=== PATIENT | female | born 1990 | race Caucasian/White ===

== ENCOUNTER 2023-06-27 01:32 | Day surgery (SDC) | payer BC, SELFPAY ==
[2023-06-20 14:40] VITALS: BMI 20.5
--- NOTE | 2023-06-20 15:00 | PC.NURSE ---
Report to the Outpatient Waiting Room, entrance under the green pavilion located off [facility], at 0800 on 06/27/23. Planned Procedure Time: 1000. Time changes happen often and if your time is changed the preop area will call you the afternoon before. - You and your visitor will be asked to self-screen and do not enter if you have any COVID symptoms. - A mask is optional within the hospital at this time. Patients may have clear liquids (water, carbonated beverages, clear teas, apple juice) until 3 hours prior to surgery with a maximum of 20 ounces. - No food from midnight until time of surgery Take the following medications with a SIP of water the morning of surgery: _n/a DO NOT STOP ANY OF YOUR OTHER PRESCRIPTION MEDICATIONS PRIOR TO SURGERY ?EXCEPT THE FOLLOWING Medications to discontinue per physician-all vitamins/supplements Date to take last dose-3 days prior Please no make-up, nail luxembourgish, hairspray, perfume, deodorant, or body powder the day of surgery. No jewelry (including any body piercings) or valuables the day of surgery, leave them at home. Please take a shower or bath the night before, or the morning of, surgery with an antibacterial soap. Wear comfortable, loose fitting clothing. - Jewelry must be removed prior to entering the operating room. Rings and piercings that are not removed may be cut off. - The hospital will not accept responsibility for valuables. - Please leave all valuables, including medications, at home the day of surgery. If you are going home after surgery, a licensed truss driver helper must drive you home. - NO public transportation without another adult if you receive anesthesia. - We recommend that an adult stay with you for 24 hours following discharge. - We also recommend that you do not drive, make important decision, drink alcoholic beverages, or take any drugs that were not prescribed by your health care provider for at least 24 hours after your discharge time. For Pediatric surgeries, we recommend two adults accompany the child home. Follow any additional instructions given to you from your surgeon. If you or anyone in your household have experienced Covid symptoms in the past week, please notify your surgeon or the nurse liaison at the phone number below for possible testing. Telephone instructions given to patient and asked if any additional questions and then verbalized understanding. Patient advised to call surgeon office or pre surgery nurse liaison [phone] if any additional questions.
[2023-06-27] VITALS (10 sets, daily range): BP systolic 92–127; BP diastolic 61–78; PULSE 54–77; RESP 14–16; TEMP 36.6; O2SAT 92–98
--- NOTE | 2023-06-27 07:15 | WPDHPUPDATE1 ---
History and Physical Update Update Date/Time: 06/27/23 07:15 A: Menometrorrhagia P: 1. Hysteroscopy with uterine curettings 2. Endometrial ablation History and Physical has been reviewed, including an updated exam of the patient. There are NO changes in the patient's condition. Risks, benefits, and alternatives have been discussed and questions answered. Patient agrees to proceed with procedure.
[2023-06-27 08:50] LABS: Hemoglobin 12.5 g/dL (12.0-15.0); Mean Corpuscular HGB Conc 32.9 g/dl (32-36); Mean Corpuscular Hemoglobin 27.2 pg (26-34); Mean Corpuscular Volume 82.6 fl (80-100); Mean Platelet Volume 9.1 fl (7.4-10.4); Platelet Count Result 299 k/mm3 (150-375); Red Cell Distribution Width 13.3 % (11.5-14.5); White Blood Count 4.8 K/mm3 (4.5-10.0)
[2023-06-27] MEDS: LACTATED RINGERS 1,000 ML 30 ML IV CONT ×2 (09:00→10:43)
[2023-06-27] MEDS: ACETAMINOPHEN 500 MG TABLET 1000 MG PO (09:00)
[2023-06-27] MEDS: SCOPOLAMINE 1.5 MG PATCH TRANSDERM (09:23)
[2023-06-27] MEDS: ceFAZolin 2 GM/D5W 50 ML 2 GM/50 ML BAG IVPB (09:29)
--- NOTE | 2023-06-27 09:51 | W.PM.PROC2 ---
Procedure Note - Detailed Date of Procedure 06/27/23 Pre-op Diagnosis abnormal uterine bleeding Post-op Diagnosis Same Procedure Performed 1. Hysteroscopy with uterine curettings 2. Endometrial ablation Surgeon Esdras Duque MD Anesthesia MAC Findings Slightly thickened endometrial cavity Description of Procedure Patient prepped and draped usual manner for this procedure. Cervix dilated to allow the hysteroscope placed, which revealed thickened tissue. Curettings were obtained and Dana instrument was placed. Cavity assessment was performed and instrument was activated. At the end of the procedure destruction was noted throughout with no abnormality to the integrity of the cavity. Patient was sent to recovery room in stable condition. Estimated Blood Loss 10 Drains No Packing No Pathology Yes Complications No immediate complications Condition Stable Disposition PACU [facility] Billing Surgery - Charge Forward: Surgery Billing
[2023-06-27] MEDS: fentaNYL CITRATE INJ (*CRX) 100 MCG/2 ML VIAL 25 MCG IV PUSH ×5 (10:15→10:38)
[2023-06-27] MEDS: KETOROLAC 30 MG/ML VIAL (*BKC) IV PUSH (10:33)
[2023-06-27] MEDS: ONDANSETRON INJ 4 MG/2 ML VIAL IV PUSH (10:43)
[2023-06-27] MEDS: diphenhydrAMINE HCl INJ 50 MG/ML VIAL 25 MG IV PUSH (10:59)
[2023-06-27] MEDS: oxyCODONE HCL (*CRX) 5 MG TAB IR PO (11:33)
[2023-06-27] MEDS: HALOPERIDOL LACTATE 5 MG/ML VIAL 2 MG IV PUSH (12:36)
== END 2023-06-27 13:42 | disposition home or self-care (01) ==
PROVIDERS: PCP Family Medicine; Visit Provider Obstetrics & Gynecology
PROC: 0U5B8ZZ Destruction of Endometrium, Via Natural or Artificial Opening Endoscopic (ICD-10-PCS; CPT 58563; principal; 2023-06-27 10:00)
DX: N93.9 Abnormal uterine and vaginal bleeding, unspecified (principal); Z87.891 Personal history of nicotine dependence
CPT/HCPCS: 58563; 36415; 85027; 88305; A9270; J0690; J1200; J1630; J1885; J2250; J2405; J2704; J3010; J7120

== ENCOUNTER 2023-10-03 12:08 | Emergency (ER) | payer SELFPAY | END 2023-10-03 12:49 | disposition left against medical advice (07) | PROVIDERS: PCP Family Medicine | DX: Z53.21 Procedure and treatment not carried out due to patient leaving prior to being seen by health care provider (principal) | CPT/HCPCS: 99199 ==

== ENCOUNTER 2023-10-07 15:00 | Day surgery (SDC) | payer SELFPAY ==
[2023-10-07] VITALS (8 sets, daily range): BP systolic 102–157; BP diastolic 62–102; PULSE 54–94; RESP 18–20; TEMP 37.2; O2SAT 99–100
[2023-10-07] MEDS: MIDAZOLAM HCL (*CRX) 2 MG/2 ML VIAL IV PUSH (15:00)
[2023-10-07] MEDS: fentaNYL CITRATE INJ (*CRX) 100 MCG/2 ML VIAL 25 MCG IV PUSH ×2 (15:10→15:29)
[2023-10-07] MEDS: ACETAMINOPHEN 500 MG TABLET 1000 MG PO (15:27)
[2023-10-07] MEDS: ONDANSETRON INJ 4 MG/2 ML VIAL IV PUSH (15:27)
[2023-10-07] MEDS: FAMOTIDINE 20 MG/2 ML VIAL IV PUSH (15:28)
[2023-10-07] MEDS: LACTATED RINGERS 1,000 ML 30 ML IV CONT (15:31)
--- NOTE | 2023-10-07 15:48 | WPDANESEPPF ---
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 Patient Data Age: 33 Gender: F Height: Weight: Last Vital Signs Temp 37.2 C 10/07/23 15:00 Pulse 66 10/07/23 15:00 Resp 18 10/07/23 15:00 BP 105/62 10/07/23 15:00 Pulse Ox 100 10/07/23 15:00 O2 Del Method Room Air 10/07/23 15:00 Allergies Allergy/AdvReac Type Severity Reaction Status Date / Time sulfamethoxazole Allergy Severe Palpitation Verified 10/07/23 15:08 [From Bactrim] s trimethoprim [From Bactrim] Allergy Severe Palpitation Verified 10/07/23 15:08 s latex Allergy Intermediate Hives Verified 10/07/23 15:08 Home Medications Medication Instructions Recorded Confirmed Type ferrous sulfate 325 mg (65 mg 325 mg PO DAILY 04/10/23 10/07/23 History iron) tablet magnesium 250 mg tablet 250 mg PO DAILY 04/10/23 10/07/23 History vitamin B complex (B 1 tablet PO DAILY 04/10/23 10/07/23 History Complex-Vitamin B12 tablet) ibuprofen 600 mg tablet 600 mg PO TID #20 tabs 06/27/23 10/07/23 Rx Patient hx anesthesia problems: none Family hx anesthesia problems: none Results Review: All pre-operative results and documents have been reviewed as part of the pre-operative evaluation. [facility] Past Medical History Medical History Anxiety Arthritis Cyst removed from head Depression post Encounter for screening examination for sexually transmitted disease Fatty liver ?? GERD (gastroesophageal reflux disease) Heart murmur Hypothyroidism Kidney stones Migraines Surgical History Surgical History Delivery by section (01/04/17) primary c/s with tubal ligation / breech presentation H/O LEEP (11/26/13) HGSIL JOAN 2-3 H/O plastic surgery (05/19/03) PLASTIC SURGERY FACE - DOG BITE History of colposcopy (06/30/14) no bx History of colposcopy (10/29/13) HGSIL History of colposcopy (12/15/09) no bx History of gynecological procedure (11/19/11) Dx laparoscopy - pelvic pain - no path History of hysteroscopy (06/27/23) Hysteroscopy with uterine curettings 2. Endometrial ablation [place] teeth removed Family History Family History Mother Patient's mother is in good health Family history of malignant neoplasm of breast Father Patient's father is in good health Social History Social History Smoking packs per day: 0.5 Smoking cigarettes per day: 10.0 Years smoked: 5 Smoking pack-years: 2.50 Smoking status: Former smoker Tobacco type: cigarettes Second hand tobacco smoke exposure: No Smoking end date: 06/20/09 Alcohol intake: former Alcohol use details: 3 glasses wine per week previously Substance use: current Substance use type: marijuana Other substance usage details: marijuana gums as sleep aid Lack of Transportation: No Lack of Food: Never True Current Housing: I Have Housing Concerned About Future Housing: No Difficulty Paying Gas/Electric Bills: No Difficulty Paying for Meds: No Currently Unemployed: No Education: Associate Degree Difficulty w/ Childcare or Family Care: No Living arrangements: with family Additional living arrangements comments: Occupation/Education: occupation Additional occupation/education comments: Business Gender identity (if verbalized by the patient): Female Sexual Orientation (if Verbalized by the Patient): Straight or Heterosexual Spiritual care concerns: No Anes - Eval Final PreProcedure Day of Procedure 10/07/23 15:48 Patient weight: normal Heart: regular
--- NOTE | 2023-10-07 15:58 | WPDHPUPDATE1 ---
History and Physical Update Update Date/Time: 10/07/23 15:58 History and Physical has been reviewed, including an updated exam of the patient. There are NO changes in the patient's condition. Risks, benefits, and alternatives have been discussed and questions answered. Patient agrees to proceed with procedure.
[2023-10-07 16:02] LABS: Hematocrit 30.3 % (37.0-47.0); Hemoglobin 9.6 g/dL (12.0-15.0); Mean Corpuscular HGB Conc 31.7 g/dl (32-36); Mean Corpuscular Volume 85.4 fl (80-100); Mean Platelet Volume 9.1 fl (7.4-10.4); Platelet Count Result 205 k/mm3 (150-375); Red Blood Count 3.55 M/mm3 (4.2-5.4); Red Cell Distribution Width 14.4 % (11.5-14.5); White Blood Count 6.9 K/mm3 (4.5-10.0)
[2023-10-07] MEDS: KETOROLAC 15 MG/ML VIAL (*BKC) IV PUSH (16:09)
[2023-10-07] MEDS: ceFAZolin SODIUM 1 GM VIAL 2 GM IV PUSH (16:11)
--- NOTE | 2023-10-07 16:21 | W.PM.PROC2 ---
Procedure Note - Detailed Date of Procedure 10/07/23 Pre-op Diagnosis post endometrial ablation syndrome Post-op Diagnosis Same Procedure Performed 1. hysteroscopy 2. hysteroscopic drainage of hematometra Surgeon Esdras Dquue MD Anesthesia MAC Findings 1. 15cc old brown blood Description of Procedure Patient prepped and draped usual manner for this procedure. Single-tooth tenaculum was used to grasp the anterior lip of the cervix, and using the probe cervix was dilated to allow drainage of old blood from the uterine cavity. Once this was undertaken the hysteroscope was placed and irrigation of the cavity revealed no abnormalities and the rest of the cavity was drained of old blood. Estimated Blood Loss 10 Drains No Packing No Pathology None sent Complications No immediate complications Condition Stable Disposition PACU [facility] Billing Surgery - Charge Forward: Surgery Billing
[2023-10-07] MEDS: diphenhydrAMINE HCl INJ 50 MG/ML VIAL 12.5 MG IV PUSH (16:55)
== END 2023-10-07 18:10 | disposition home or self-care (01) ==
PROVIDERS: PCP Family Medicine; Visit Provider Obstetrics & Gynecology
PROC: 0U5B8ZZ Destruction of Endometrium, Via Natural or Artificial Opening Endoscopic (ICD-10-PCS; CPT 58563; principal; 2023-10-07 15:30)
DX: N99.85 Post endometrial ablation syndrome (principal); Z87.891 Personal history of nicotine dependence; E03.9 Hypothyroidism, unspecified; K21.9 Gastro-esophageal reflux disease without esophagitis
CPT/HCPCS: 58579; 36415; 85027; A9270; J0690; J1200; J1885; J2250; J2405; J2704; J3010; J7120

== ENCOUNTER 2024-09-24 00:08 | Day surgery (SDC) | payer BC, SELFPAY ==
[2024-09-10 17:56] VITALS: BMI 20.5
--- NOTE | 2024-09-10 18:01 | SUR.PREOP ---
Report to the Outpatient Waiting Room, entrance under the green pavilion located off [facility], at time ___0600__ on date ____09/24/2024___. Planned Procedure Time: 729__.? Time changes happen often and if your time is changed the preop area will call you the afternoon before. - You and your visitor will be asked to self-screen and do not enter if you have any COVID symptoms. Please call surgeon if you need to reschedule. - A mask is optional within the hospital at this time. Patients may have clear liquids (water, carbonated beverages, clear teas, apple juice) until 3 hours prior to surgery with a maximum of 20 ounces. - No food from midnight until time of surgery and no smoking. This includes no chewing gum, candy or mints. - Infants may have breast milk until 4 hours before surgery, infant formula 6 hours prior to surgery. - Children will be allowed to drink immediately following surgery.? If applicable, please bring a bottle or sippy cup to assist with drinking. Juice, water, soda, and popsicles are readily available.? For infants on formula, please bring formula the day of surgery.? Pacifiers are allowed. Take only the following medications with a SIP of water on the morning of surgery: N/A DO NOT STOP ANY OF YOUR OTHER PRESCRIPTION MEDICATIONS PRIOR TO SURGERY EXCEPT THE FOLLOWING Medications to discontinue per physician N/A Date to take last dose N/A Please no make-up, nail occitan, hairspray, perfume, deodorant, or body powder the day of surgery.? No jewelry (including any body piercings) or valuables the day of surgery, leave them at home.? Please take a shower or bath the night before, or the morning of, surgery with an antibacterial soap.? Wear comfortable, loose fitting clothing.? Children are encouraged to wear pajamas. - Jewelry must be removed prior to entering the operating room.? Rings and piercings that are not removed may be cut off. - The hospital will not accept responsibility for valuables.? - Please leave all valuables, including medications, at home the day of surgery. If you are going home after surgery, a licensed stock car driver must drive you home.? - NO public transportation without another adult if you receive anesthesia. - We recommend that an adult stay with you for 24 hours following discharge. - We also recommend that you do not drive, make important decision, drink alcoholic beverages, or take any drugs that were not prescribed by your health care provider for at least 24 hours after your discharge time. For Pediatric surgeries, we recommend two adults accompany the child home. Follow any additional instructions given to you from your surgeon. Telephone instructions given to Suzie____and asked if any additional questions and then verbalized understanding. Patient advised to call surgeon office or pre surgery nurse liaison [phone] if any additional questions.
[2024-09-24] VITALS (12 sets, daily range): BP systolic 94–128; BP diastolic 49–67; PULSE 64–98; RESP 12–21; TEMP 36.3–37.6; O2SAT 98–100; BMI 20.7
--- OUTSIDE RECORDS SUMMARY | 2024-09-24 00:11 | XMS_ITS | Encounter Summary ---
Author Organization [facility] Address [address] [place] [address] Care Team Providers Care Rush Seater Name Role Phone Conrad Dumas MD Primary Care Provider [phone] Karsten Rivera MD Primary Care Provider [phone] Jessica Clement NP Primary Care Provider Stacie Minaya MD Primary Care Provider [phone] Encounter Details Date Type Department Care Team (Late st Contact Info) Description 06/01/2013 Abstract [facility] CONVERSION [address] [place] [address] , Generic ConversionMD Social History Tobacco Use Types Packs/Day Years Used Date Smoking Tobacco: Never Assessed Comments Unknown Sex and Gender Information Value Date Recorded Sex Assigned at Not on file Legal Sex Female 7:27 PM CDT Gender Identity Not on file Sexual Orientation Not on file documented as of this encounter Plan of Treatment Not on file documented as of this encounter Visit Diagnoses Not on filedocumented in this encounter Additional Health Concerns Infection Onset Date Last Indicated Resolved Time COVID-19 Rule Out 10/10/2021 10/10/2021 10/10/2021 5:18 AM FINANCIAL SYSTEMS DIRECTOR COVID-19 Rule Out 10/10/2021 10/10/2021 10/11/2021 7:53 AM FINANCIAL SYSTEMS DIRECTOR COVID-19 Rule Out 03/08/2023 03/08/2023 03/08/2023 1:11 PM CDT documented as of this encounter Care Teams Rush Seater Relationship Specialty Start Date End Date Conrad Dumas MD PCP - General INTERNAL MEDICINE 08/04/19 10/09/21 [place] [address] [id number] PCP - General FAMILY PRACTICE 10/10/21 10/18/21 [place] [address] [place] [address] PCP - General NURSE PRACTITIONER 10/19/21 05/22/22 [place] [id number] [address] [place] [address] PCP - General FAMILY PRACTICE 05/23/22 documented as of this encounter
--- OUTSIDE RECORDS SUMMARY | 2024-09-24 00:11 | XMS_ITS | Encounter Summary ---
Author Organization [facility] Address [address] [place] [address] Care Team Providers Care Trouble Clerk Name Role Phone Conrad Dumas MD Primary Care Provider [phone] Karsten Rivera MD Primary Care Provider [phone] Jessica Clement NP Primary Care Provider Stacie Minaya MD Primary Care Provider [phone] Encounter Details Date Type Department Care Team (Late st Contact Info) Description 02/20/2013 Abstract [facility] CONVERSION [address] [place] [address] , Generic ConversionMD Social History Tobacco Use [...] Rule Out 10/10/2021 10/10/2021 10/10/2021 5:18 AM CONTACT AND SERVICE CLERKS SUPERVISOR COVID-19 Rule Out 10/10/2021 10/10/2021 10/11/2021 7:53 AM CONTACT AND SERVICE CLERKS SUPERVISOR COVID-19 Rule Out 03/08/2023 03/08/2023 03/08/2023 1:11 PM CDT documented as of this encounter Care Teams Trouble Clerk Relationship Specialty Start Date End Date Conrad Dumas MD PCP - General INTERNAL MEDICINE 08/04/19 10/09/21 [place] [address] [address] [place] [id number] PCP - General FAMILY PRACTICE 10/10/21 10/18/21 [place] [address] [place] [address] PCP - General NURSE PRACTITIONER 10/19/21 05/22/22 [place] [address] [address] [place] [address] PCP - General FAMILY PRACTICE 05/23/22 documented as of this encounter
--- OUTSIDE RECORDS SUMMARY | 2024-09-24 00:11 | XMS_ITS | Clinical Summary ---
Author Organization [facility] Address [facility] [place] [address] Care Team Providers Care Project Management Analyst Name Role Phone Stacie Pavon MD Primary Care Provider Allergies Active Allergy Reactions Criticality Noted Date Comments Sulfamethoxazole-Trimethoprim Shortness of Breath High 10/26/2021 Latex Hives 11/11/2012 Medications escitalopram (LEXAPRO) 20 MG tabletIndications: Mild episode of recurrent major depressive disorder (CMS/HCC) Take 1 tablet (20 mg total) by mouth daily. 90 tablet 1 07/09/20 22 Active Additional Information Patient not taking.Reported on 08/10/2024 B Complex Cap capsule Take 1 capsule by mouth daily. Active Vitamin D-Vitamin K (VITAMIN K2-VITAMIN D3 OR) Take by mouth daily. Active IRON CR OR Active MAGNESIUM CITRATE OR Take by mouth daily. Active oxyCODONE-acetamin ophen (PERCOCET) 5-325 MG tabletIndications: Acute Pain < 7 Day Supply Take 1-2 tablets by mouth every 6 (six) hours as needed for Pain. Indications: Acute Pain < 7 Day Supply 20 tablet 10/06/19 24 Active Additional Information Patient not taking.Reported on 08/10/2024 medroxyPROGESTERon e (PROVERA) 10 MG tablet Take 1 tablet (10 mg total) by mouth daily. 10 tablet 10/07/19 24 Active Additional Information Patient not taking.Reported on 08/10/2024 dicyclomine (BENTYL) 20 MG tabletIndications: Follow-up exam,Pelvic pain Take 1 tablet (20 mg total) by mouth every 6 (six) hours as needed (abdominal spasm). 30 tablet 10/07/19 Active Additional Information Patient not taking.Reported on 08/10/2024 ondansetron (ZOFRAN-ODT) 4 MG disintegrating tabletIndications: Nausea and vomiting, unspecified vomiting type Take 1 tablet (4 mg total) by mouth every 8 (eight) hours as needed for Nausea. 20 tablet 10/07/19 Active Additional Information Patient not taking.Reported on 08/10/2024 naproxen (NAPROSYN) 500 MG tablet Take 1 tablet (500 mg total) by mouth 2 (two) times daily with meals. 60 tablet 12/29/19 Active Additional Information Patient not taking.Reported on 08/10/2024 albuterol sulfate HFA 108 (90 Base) MCG/ACT inhalerIndications :Wheezing Inhale 2 puffs into the lungs every 6 (six) hours as needed for Wheezing. 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), predominantly inattentive type 02/09/2020 Overview (02/09/2020): Not currently treated with medications Mild episode of recurrent major depressive disor kyle 09/30/2019 Generalized anxiety disorder 09/30/2019 Medication management 08/13/2019 BMI 26.0-26.9,adult 08/13/2019 Gastroesophageal reflux disease without esophagi tis 08/04/2019 Insomnia 07/21/2013 Irritable bowel syndrome 03/06/2013 Motion sickness 02/16/2013 Vitamin D deficiency 11/28/2012 Asthma ([facility]) Resolved Problems Problem Noted Date Diagnosed Date Resolved Date Fatigue 11/28/2012 09/09/2020 Encounters Date Type Department Care Team Description 08/10/2024 1:00 PM MANAGER REPORT Office Visit [facility] Family & Internal Medicine - [address] [address] Jyoti Morrison PA Congestion (Cough, chest congestion x 3 weeks ) 08/10/2024 Travel from Last 3 Months Immunizations Name Administration Dates Next Due Fluzone 6 Months+ Quad (0.5 mL Prefilled Syringe ) 06/06/2022,08/04/2019 Influenza Adult (Generic) 08/04/2019 MMR 01/06/2017 MMR (MMRII) 01/06/2017 Tdap (Generic) 01/06/2017 Family History Medical History Relation Comments Cancer Mother breast Relation Status Comments Father Alive Mother Alive Social History Tobacco Use Types Packs/Day Years Used Date Smoking Tobacco: Never Passive Smoke Exposure: Never Smokeless Tobacco: Never Tobacco Cessation:Counseling Given: No Alcohol Use Standard Drinks/Week Comments Yes 0 (1 standard drink = 0.6 oz pur e alcohol) socially PHQ-2 Answer Date Recorded Patient Health Questionnaire-2 Score 0 01/02/2023 Comments No Sex and Gender Information Value Date Recorded Sex Assigned at Not on file Legal Sex Female 7:27 PM CDT Gender Identity Not on file Sexual Orientation Not on file Last Filed Vital Signs Vital Sign Reading Time Taken Comments Blood Pressure 117/74 08/10/2024 12:20 PM MANAGER REPORT Pulse 65 08/10/2024 12:20 PM MANAGER REPORT Temperature 36.3 C (97.3 F) 08/10/2024 12:20 PM MANAGER REPORT Respiratory Rate 18 08/10/2024 12:20 PM MANAGER REPORT Oxygen Saturation 100% 08/10/2024 12:20 PM MANAGER REPORT Inhaled Oxygen Concentration - - Weight 51.3 kg (113 lb) 08/10/2024 12:20 PM MANAGER REPORT Height 157.5 cm (5' 2 ) 08/10/2024 12:20 PM MANAGER REPORT Body Mass Index 20.67 08/10/2024 12:20 PM MANAGER REPORT Plan of Treatment Health Maintenance Due Date Last Done Comments Cervical Cancer Screening Pa p Smear (Age 30 to 64) Every 3 Years 1988 Pneumococcal Vaccine: Pediatrics (0 to 5 Years) and At-Risk Patients (6 to 64 Years) (1 of 2 - PCV) 01/12/1994 Hepatitis C 01/12/2006 Hepatitis B Vaccines (1 of 3 - 19+ 3-dose series) 01/12/2007 Cervical Cancer Screening Pa p with HPV Testing (Age 30 to 64) Every 5 Years 01/12/2018 Cervical Cancer Screening wi th HPV 01/12/2018 Annual Physical 10/26/2022 10/26/2021 COVID-19 Vaccine (1 - 2023-2 5 season) 2024 Influenza Adult (#1) 2024 06/06/2022, 08/04/2019, 08/04/2019 PHQ-2 (Physician [place]) 08/19/2024 01/02/2023 DTaP, Tdap and Td Vaccines ( 2 - Td or Tdap) 01/06/2027 01/06/2017 HPV Vaccines Aged Out No longer eligi ble based on patient's age to complete this topic Meningococcal B Vaccine Aged Out No l onger eligible based on patient's age to complete this topic Meningococcal Vaccine Aged Out No andree sharon eligible based on patient's age to complete this topic RSV Immunizations Under 20 Months Aged Out No longer eligible b ased on patient's age to complete this topic Goals Goal Patient Goal Type Associated Problems Recent Progress Patient-Stated? Author Health - patient able to perform ADLs independently General No Sofia Linares, RN Insurance Advance Directives * Full Code (Latest Code Status on File) Date Activated Date Inactivated Comments 10/10/2021 11:36 AM 10/12/2021 12:25 PM Care Teams Project Management Analyst Relationship Specialty [place] [address] [address] [place] [id number] PCP - General FAMILY PRACTICE 05/23/22
--- OUTSIDE RECORDS SUMMARY | 2024-09-24 00:11 | XMS_ITS | Encounter Summary ---
Author Organization [facility] Address [address] [place] [address] Care Team Providers Care Disaster Director Name Role Phone Conrad Dumas MD Primary Care Provider [phone] Karsten Rivera MD Primary Care Provider [phone] Jessica Clement NP Primary Care Provider Stacie Minaya MD Primary Care Provider [phone] Encounter Details Date Type Department Care Team (Latest Contact Info) Description 06/24/2018 Abstract [facility] Walker Lott MD Social History Tobacco Use Types Packs/Day Years [...] Rule Out 10/10/2021 10/10/2021 10/10/2021 5:18 AM GEOTECHNICAL FIELD TECHNICIAN COVID-19 Rule Out 10/10/2021 10/10/2021 10/11/2021 7:53 AM GEOTECHNICAL FIELD TECHNICIAN COVID-19 Rule Out 03/08/2023 03/08/2023 03/08/2023 1:11 PM CDT documented as of this encounter Care Teams Disaster Director Relationship Specialty Start Date End Date Conrad Dumas MD PCP - General INTERNAL MEDICINE 08/04/19 10/09/21 [place] [address] [place] [address] PCP - General FAMILY PRACTICE 10/10/21 10/18/21 [place] [address] [place] [address] PCP - General NURSE PRACTITIONER 10/19/21 05/22/22 [place] [address] [address] [id number] PCP - General FAMILY PRACTICE 05/23/22 documented as of this encounter
[2024-09-24] MEDS: LACTATED RINGERS 1,000 ML 30 ML IV CONT ×2 (06:30→09:18)
[2024-09-24] MEDS: KETOROLAC 15 MG/ML VIAL (*BKC) IV PUSH (06:40)
[2024-09-24] MEDS: ACETAMINOPHEN 500 MG TABLET 1000 MG PO ×3 (06:40→17:44)
--- NOTE | 2024-09-24 06:59 | WPDANESEPPF ---
Anes - Initial Pre Proc Eval Procedure: Operation Date: 09/24/24 07:30 Proposed Procedures p Robotic Assisted Total Laparoscopic Hysterectomy with Bilateral Salpingectomy - Esdras Duque MD Date/Time: 09/24/24 06:59 Surgeon: Esdras Duque MD Pre Op Diagnosis: menorrhagia Patient Data Age: 34 Gender: F Height: 1.57 m Weight: 51.6 kg Last Vital Signs Temp 36.4 C 09/24/24 06:05 Pulse 78 09/24/24 06:05 Resp 18 09/24/24 06:05 BP 128/61 09/24/24 06:05 Pulse Ox 100 09/24/24 06:05 O2 Del Method Room Air 09/24/24 06:05 Allergies Allergy/AdvReac Type Severity Reaction Status Date / Time sulfamethoxazole (From Allergy Severe Palpitation Verified 09/24/24 06:15 Bactrim) s trimethoprim (From Bactrim) Allergy Severe Palpitation Verified 09/24/24 06:15 s latex Allergy Intermediate Hives Verified 09/24/24 06:15 Home Medications ?Medication ?Instructions ?Recorded ?Confirmed ?Type No Home Medications 06/19/24 09/15/24 History Patient hx anesthesia problems: none Family hx anesthesia problems: none Results Review: All pre-operative results and documents have been reviewed as part of the pre-operative evaluation. [facility] Past Medical History Medical History Encounter for screening examination for sexually transmitted disease Fatty liver ?? Cyst removed from head Hypothyroidism Migraines Kidney stones GERD (gastroesophageal reflux disease) Heart murmur Arthritis Depression post Anxiety Surgical History Surgical History History of hysteroscopy (10/07/23) hysteroscopic drainage of hematometra History of hysteroscopy (06/27/23) Hysteroscopy with uterine curettings 2. Endometrial ablation H/O plastic surgery (05/19/03) PLASTIC SURGERY FACE - DOG BITE History of colposcopy (12/15/09) no bx History of gynecological procedure (11/19/11) Dx laparoscopy - pelvic pain - no path History of colposcopy (10/29/13) HGSIL History of colposcopy (06/30/14) no bx Delivery by section (01/04/17) primary c/s with tubal ligation / breech presentation [place] teeth removed H/O LEEP (11/26/13) HGSIL JOAN 2-3 Family History Family History Mother Patient's mother is in good health Family history of malignant neoplasm of breast Father Patient's father is in good health Social History Social History Smoking packs per day: 0.5 Smoking cigarettes per day: 10.0 Years smoked: 5 Smoking pack-years: 2.50 Smoking status: Former smoker Tobacco type: cigarettes Second hand tobacco smoke exposure: No Smoking end date: 06/20/09 Alcohol intake: current Alcohol use details: 3 glasses wine per week previously Substance use: former Substance use type: marijuana Other substance usage details: marijuana gums as sleep aid Do You Feel Safe in your Home?: Yes Lack of Transportation: No Lack of Food: Never True Current Housing: I Have Housing Concerned About Future Housing: No Difficulty Paying Gas/Electric Bills: No Difficulty Paying for Meds: No Currently Unemployed: No Education: Associate Degree Difficulty w/ Childcare or Family Care: No Living arrangements: with family Additional living arrangements comments: Occupation/Education: occupation Additional occupation/education comments: Business Gender identity (if verbalized by the patient): Female Sexual Orientation (if Verbalized by the Patient): Straight or Heterosexual Spiritual care concerns: No Anes - Eval Final PreProcedure Day of Procedure 09/24/24 06:59 Patient weight: normal Heart: regular rate and rhythm Lungs: clear to auscultation Airway: Mallampati scale class II Neurological: alert and oriented Last oral intake: >/= 8 hours ASA classification: II Emergent: no Anesthetic plan: proceed Anesthesia type and monitoring: general ETT and standard monitoring Results Review: All pre-operative results and documents have been reviewed as part of the pre-operative evaluation. Informed Consent: The patient's anesthetic plan and its attendant risks and benefits were discussed with the patient/family/POA. Questions were solicited and answers provided to the satisfaction of the patient/family/POA.
[2024-09-24] MEDS: SCOPOLAMINE 1 MG PATCH 1 PATCH TRANSDERM (07:03)
--- NOTE | 2024-09-24 07:25 | WPDHPUPDATE1 ---
History and Physical Update Update Date/Time: 09/24/24 07:25 History and Physical has been reviewed, including an updated exam of the patient. There are NO changes in the patient's condition. Risks, benefits, and alternatives have been discussed and questions answered. Patient agrees to proceed with procedure.
[2024-09-24] MEDS: ceFAZolin 2 GM/D5W 50 ML 2 GM/50 ML BAG IVPB (07:27)
--- NOTE | 2024-09-24 08:55 | W.PM.PROC2 ---
Procedure Note - Detailed Date of Procedure 09/24/24 Pre-op Diagnosis 1. Menometrorrhagia 2. Post endometrial ablation syndrome 3. Anemia 4. Prior section x1 Post-op Diagnosis Same (5. Adhesions) Procedure Performed 1. Robotic assisted total laparoscopic hysterectomy with bilateral salpingectomy 2. Adhesiolysis Surgeon Esdras Duque MD Anesthesia General Findings Enlarged globular uterus with normal tubes and ovaries. Adhesions of the bladder to the anterior portion of cervix as well as omentum to the abdominal wall. Description of Procedure Patient was prepped and draped in usual manner for this procedure. Cervical instruments were placed for uterine mobility throughout the case. Abdominal trocar sites were then marked and placed under direct visualization. Arbovax system was attached and instruments were placed. Surgeon moved to the console and initially adhesions were taken down sharply and bluntly to restore normal anatomy. Mesial salpinx bilaterally cauterized and cut to remove the tubes. Utero-ovarian ligaments were cauterized and cut and the round ligament was cauterized and cut and the anterior leaf the broad ligament was dissected to develop the bladder flap with minimal difficulty due to scarring and adhesions. Posterior leaf was also incised with no difficulty. Uterine vessels are skeletonized cauterized and cut. Anterior cul-de-sac was then entered using scissors and this was carried circumferentially around the cervix to separate the cervix from the vaginal wall. Uterus was delivered into the vagina and the cuff was then closed using V lock suture from the right angle to midline and then left angle midline with good approximation hemostasis noted. [place] arm was then placed empirically without any bleeding of significance being noted. Gas was allowed to escape trocars removed and incisions approximated 4-0 Monocryl. Patient was then sent to the recovery room in stable condition. Estimated Blood Loss 100 Urine Output 200 Drains No Packing No Pathology Yes Complications No immediate complications Condition Stable Disposition Floor [facility] Billing Surgery - Charge Forward: Surgery Billing
[2024-09-24] MEDS: MEPERIDINE HCL INJ (*CRX) 50 MG/ML AMPUL 25 MG IV PUSH (09:24)
[2024-09-24] MEDS: diphenhydrAMINE HCl INJ 50 MG/ML VIAL 25 MG IV PUSH (09:25)
[2024-09-24] MEDS: fentaNYL CITRATE INJ (*CRX) 100 MCG/2 ML VIAL 25 MCG IV PUSH ×2 (10:15→10:17)
[2024-09-24] MEDS: HYDROmorphone HCL INJ (*CRX) 1 MG/ML SYR 0.5 MG IV PUSH ×2 (11:05→18:52)
[2024-09-24] MEDS: DEXTROSE 5%/0.45% SOD CHL 1,000 ML 125 ML IV CONT (11:07)
[2024-09-24] MEDS: KETOROLAC 30 MG/ML VIAL (*BKC) IV PUSH ×2 (12:10→17:44)
[2024-09-24] MEDS: SIMETHICONE 80 MG TAB.CHEW PO ×2 (12:10→16:54)
[2024-09-24] MEDS: oxyCODONE HCL (*CRX) 5 MG TAB IR 10 MG PO (14:20)
[2024-09-24] MEDS: DOCUSATE SODIUM 100 MG CAPSULE PO (16:54)
--- NOTE | 2024-09-24 18:10 | WPDANESPN ---
Anes - Prog Note Post-Op Date/Time: 09/24/24 18:10 Cardiovascular status: normal Respiratory status: normal Airway patency: baseline Mental status: baseline Post-Op hydration status: normal Vital Signs: Last Vital Signs Temp 36.4 C L 09/24/24 17:03 Pulse 76 09/24/24 17:49 Resp 18 09/24/24 17:49 BP 99/61 L 09/24/24 17:03 Pulse Ox 100 09/24/24 17:49 O2 Del Method Room Air 09/24/24 17:49 O2 Flow Rate 8 09/24/24 09:30 Pain Score (VAS): 3/10 I/O: Intake & Output 09/24/24 09/24/24 09/24/24 07:59 15:59 23:59 Intake Total 50 300 400 Output Total 700 Balance 50 -400 400 Post-procedural complaints: none Patient Feedback: Patient satisfied with anesthetic care.
[2024-09-25] MEDS: ACETAMINOPHEN 500 MG TABLET 1000 MG PO ×2 (00:03→06:18)
[2024-09-25] MEDS: KETOROLAC 30 MG/ML VIAL (*BKC) IV PUSH (00:03)
[2024-09-25 00:30] VITALS: BP 95/58; PULSE 61; RESP 14; TEMP 36.6; O2SAT 99
[2024-09-25 04:33] VITALS: BP 94/53; PULSE 59; RESP 14; TEMP 36.5; O2SAT 99
[2024-09-25 06:02] LABS: Basophils Absolute Auto 0.1 K/mm3 (0.0-0.1); Basophils Percent Auto 0.4 % (0.2-1.2); Eosinophils Percent Auto 0.1 % (0-4.4); Hematocrit 34.5 % (37.0-47.0); Hemoglobin 11.4 g/dL (12.0-15.0); Immature Granulocyte Absolute 0.04 K/mm3 (0.00-0.031); Immature Granulocyte Percent A 0.3 % (0-0.5); Lymphocytes Absolute Auto 3.26 K/mm3 (0.9-3.2); Lymphocytes Percent Auto 24.4 % (18.3-44.2); Mean Corpuscular Hemoglobin 29.5 pg (26-34); Mean Corpuscular Volume 89.4 fl (80-100); Mean Platelet Volume 9.3 fl (7.4-10.4); Monocytes Absolute Auto 0.8 K/mm3 (0.1-0.6); Monocytes Percent Auto 5.6 % (2.6-8.5); Neutrophils Absolute Auto 9.3 K/mm3 (1.3-6.7); Neutrophils Percent Auto 69.2 % (45.5-73.1); Platelet Count Result 242 k/mm3 (150-375); Red Blood Count 3.86 M/mm3 (4.2-5.4); Red Cell Distribution Width 12.8 % (11.5-14.5); White Blood Count 13.4 K/mm3 (4.5-10.0)
[2024-09-25] MEDS: IBUPROFEN 600 MG TABLET PO (06:18)
[2024-09-25] MEDS: oxyCODONE HCL (*CRX) 5 MG TAB IR 10 MG PO (07:27)
[2024-09-25] MEDS: SIMETHICONE 80 MG TAB.CHEW PO (07:27)
[2024-09-25] MEDS: DOCUSATE SODIUM 100 MG CAPSULE PO (07:28)
[2024-09-25 07:30] VITALS: BP 96/58; PULSE 78; RESP 18; TEMP 36.7; O2SAT 99
--- NOTE | 2024-09-25 08:15 | WPDANESPN ---
Anes - Prog Note Post-Op Date/Time: 09/25/24 08:15 Cardiovascular status: normal Respiratory status: normal Airway patency: baseline Mental status: baseline Post-Op hydration status: normal Vital Signs: Last Vital Signs Temp 97.7 F 09/25/24 04:33 Pulse 59 L 09/25/24 04:33 Resp 14 09/25/24 04:33 BP 94/53 L 09/25/24 04:33 Pulse Ox 99 09/25/24 04:33 O2 Del Method Room Air 09/24/24 17:49 O2 Flow Rate 8 09/24/24 09:30 Pain Score (VAS): 0/10 I/O: Intake & Output 09/24/24 09/25/24 09/25/24 23:59 07:59 15:59 Intake Total 500 Balance 500 Laboratory Tests 09/25/24 04:28 09/25/24 04:28 WBC 13.4 H RBC 3.86 L Hgb 11.4 L Hct 34.5 L MCV 89.4 MCH 29.5 MCHC 33.0 RDW 12.8 Plt Count 242 MPV 9.3 Immature Gran % (Auto) 0.3 Neut % (Auto) 69.2 Lymph % (Auto) 24.4 Hartley % (Auto) 5.6 Eos % (Auto) 0.1 Baso % (Auto) 0.4 Lymph # (Auto) 3.26 H Hartley # (Auto) 0.8 H Eos # (Auto) 0.0 Baso # (Auto) 0.1 Abs Immat Gran (auto) 0.04 H Absolute Neuts (auto) 9.3 H Absolute Nucleated RBC 0.000 Nucleated RBC % 0.0 Post-procedural complaints: none Patient Feedback: Patient satisfied with anesthetic care.
[2024-09-25] MEDS: BISACODYL 10 MG SUPPOSITORY RECTAL (09:47)
== END 2024-09-25 10:55 | disposition home or self-care (01) ==
LOC: ANHSURGERY 07:40 → ANHOB2 15:47
PROVIDERS: PCP Family Medicine; Visit Provider Obstetrics & Gynecology
PROC: (CPT 58570; principal; 2024-09-24 07:30)
DX: N88.0 Leukoplakia of cervix uteri (principal); N88.8 Other specified noninflammatory disorders of cervix uteri; N83.8 Other noninflammatory disorders of ovary, fallopian tube and broad ligament; N70.11 Chronic salpingitis; N73.6 Female pelvic peritoneal adhesions (postinfective); K66.0 Peritoneal adhesions (postprocedural) (postinfection); G89.18 Other acute postprocedural pain; E03.9 Hypothyroidism, unspecified; D64.9 Anemia, unspecified; K21.9 Gastro-esophageal reflux disease without esophagitis; R01.1 Cardiac murmur, unspecified; F32.A Depression, unspecified; F41.9 Anxiety disorder, unspecified; M19.90 Unspecified osteoarthritis, unspecified site; F12.90 Cannabis use, unspecified, uncomplicated; Z98.890 Other specified postprocedural states; Z98.891 History of uterine scar from previous surgery; Z98.51 Tubal ligation status; Z87.442 Personal history of urinary calculi; Z87.891 Personal history of nicotine dependence; Z80.3 Family history of malignant neoplasm of breast
CPT/HCPCS: 58570; S2900; 36415; 85025; 88307; 99199; A9270; J0330; J0690; J1100; J1171; J1200; J1885; J2003; J2175; J2250; J2405; J2704; J3010; J7030; J7120; Q9968